=== PATIENT | male | born 2000 | race Caucasian/White ===

== ENCOUNTER 2019-04-05 23:13 | Inpatient (IN) | payer OTHER ==
[2019-04-06 01:34] VITALS: BMI 19.3
[2019-04-06] MEDS ORDERED: IBUPROFEN 400 MG TABLET (FP) PO PRN (01:42)
[2019-04-06] MEDS ORDERED: MENTHOL/PHENOL 1 EACH UD MM PRN (01:42)
[2019-04-06] MEDS ORDERED: MAGNESIUM HYDROX 2400MG/30ML ORAL SUSPENSION 30 ML CUP PO PRN (01:42)
[2019-04-06] MEDS ORDERED: NICOTINE POLACRILEX 2 MG GUM BUC PRN (01:42)
[2019-04-06] MEDS ORDERED: METHADONE HCL 10 MG TABLET (FOR DETOX USE ONLY) PO ONE (01:42)
[2019-04-06] MEDS ORDERED: DICYCLOMINE HCL 10 MG CAPSULE PO PRN (01:42)
[2019-04-06] MEDS ORDERED: ONDANSETRON *ODT* 4 MG TABLET SL PRN (01:42)
[2019-04-06] MEDS ORDERED: METHOCARBAMOL 500 MG TABLET PO PRN (01:42)
[2019-04-06] MEDS ORDERED: cloNIDine HCL 0.1 MG TABLET PO PRN (01:42)
[2019-04-06] MEDS ORDERED: MELATONIN 5 MG TABLETS PO PRN (01:42)
[2019-04-06] MEDS ORDERED: hydrOXYzine PAMOATE 25 MG CAPSULE (FP) PO PRN (01:42)
[2019-04-06] MEDS ORDERED: BISMUTH SUBSALICYLATE 524 MG/30 ML UD PO PRN (01:42)
[2019-04-06] MEDS ORDERED: NALOXONE HCL 0.4 MG/ML VIAL IM PRN (01:42)
[2019-04-06] MEDS ORDERED: MAG HYDROX/AL HYDROX/SIMETH 30 ML UNIT-DOSE CUP PO PRN (01:42)
[2019-04-06] MEDS ORDERED: MAGNESIUM CITRATE 300 ML BOTTLE PO PRN (01:42)
[2019-04-06] MEDS ORDERED: P-EPHED 60MG/TRIPROLIDI 2.5MG TABLET PO PRN (01:42)
[2019-04-06] MEDS ORDERED: ACETAMINOPHEN 325 MG TABLET (FP) PO PRN ×2 (01:42)
[2019-04-06] MEDS ORDERED: guaiFENesin 200 MG/10 ML 10 ML UNIT-DOSE CUPS PO PRN (01:42)
--- NOTE | 2019-04-06 01:42 | PN ---
BHS COWS - Scale Resting Pulse: 1= VT 81-100 Sweatin= No chills or Flushing Restless Observation: 0= Sits Still Pupil Size: 1= Pupils >than Normal Bone or Joint Aches: 4=Acute Joint/Muscle Pain Runny Nose/ Eye Tearin= Runny Nose/Eyes GI Upset > 30mins: 0= None Tremor Observation of Outstretched Hands: 0= None Yawning Observation: 1= 1-2x During Session Anxiety or Irritability: 2=Irritable/Anxious Goose Flesh Skin: 3=Piloerection COWS Score: 14 BHS Progress Note (SOAP) Subjective: HERE FOR HEROIN DETOX. REFERRED BY [facility]. REPORTS DAILY USE OF HEROIN 1 BUNDLE VIA NASAL. SINCE AGE OF 11. LAST USE EARLIER TODAY. DENIES SOB, C.P. SI/HI/AVH PMHX- DENIES PSYCH- DEPRESSION NICOTINE DEP- 10 CIG DAILY Objective: 04/06/19 01:40 Vital Signs Temperature 98.2 F 04/06/19 01:32 Pulse Rate 85 04/06/19 01:32 Respiratory Rate 18 04/06/19 01:32 Blood Pressure 124/71 04/06/19 01:32 O2 Sat by Pulse Oximetry (%) UTOX + SUZANNA, FEN, MOP, THC alejandrina 0 A/ O X3 MILD DISTRESS NCAT PERRLA, EOMI CV- RRR LUNGS CTAB ABD- SCAR, SOFT, NT INCREASE BS X4 SKIN INTACT EXTREMITIES- FROM W/O LIMITATIONS, TREMORS FELT 04/06/19 01:50 Assessment: 04/06/19 01:41 F11.23 F14.20 F12.20 Plan: ADMIT TO DETOX METHADONE TAPER
[2019-04-06] MEDS ORDERED: PRENATAL VITAMINS W/ FOLIC ACID TABLET (FP) PO SCH (10:00)
[2019-04-06] MEDS ORDERED: NICOTINE 14 MG/24 HOURS TOPICAL PATCH TD SCH (10:00)
--- NOTE | 2019-04-06 11:20 | HP ---
COWS - Scale Resting Pulse: 1= ID 81-100 Sweatin= Chills/Flushing Restless Observation: 1= Difficult to Sit Still Pupil Size: 0= Normal to Room Light Bone or Joint Aches: 4=Acute Joint/Muscle Pain Runny Nose/ Eye Tearin= None GI Upset > 30mins: 0= None Tremor Observation: 0= None Yawning Observation: 1= 1-2x During Session Anxiety or Irritability: 2=Irritable/Anxious Goose Flesh Skin: 3=Piloerection COWS Score: 13 CIWA Score - Admission Criteria OASAS Guidelines: Admission for Medically Managed Detox: Requires at least one of the followin. CIWA greater than 12 2. Seizures within the past 24 hours 3. Delirium tremens within the past 24 hours 4. Hallucinations within the past 24 hours 5. Acute intervention needed for co occurring medical disorder 6. Acute intervention needed for co occurring psychiatric disorder 7. Severe withdrawal that cannot be handled at a lower level of care (continued vomiting, continued diarrhea, abnormal vital signs) requiring intravenous medication and/or fluids 8. Admitting History and Physical - Admission Chief Complaint: "I need to Detox." History of Present Illness: Patient is a 19 YO male here to Detox from Heroin. Patient also uses Cocaine on a daily basis. This is Patient's first Detox admission at [facility]. Patient Reports that he currently Uses approx. 1 Bundle of Heroin (via Inhalation) and approx. 1 Gram of Cocaine (via Inhalation) both daily. History Source: Patient Limitations to Obtaining History: No Limitations - Past Medical History Psych: Yes: Anxiety, Depression Additional Past Medical History: DENIES. - Past Surgical History Past Surgical History: Yes: None Additional Past Surgical History: DENIES. - Smoking History Smoking history: Current every day smoker Have you smoked in the past 12 months: Yes Aproximately how many cigarettes per day: 10 - Alcohol/Substance Use Hx Alcohol Use: No History of Substance Use: reports: Cocaine, Heroin Date of Last Use: 04/05/19 - Social History Usual Living Arrangement: Yes: Other (NOTE: PATIENT DECLINED TO ANSWER QUESTIONS PERTAININ TO SOCIAL HISTORY.) ADL: Independent Admission ROS [facility] - [facility] Chief Complaint: "I need to Detox." Patient is here to Detox from Heroin. Allergies/Adverse Reactions: Allergies Allergy/AdvReac Type Severity Reaction Status Date / Time No Known Allergies Allergy Verified 03/31/19 12:46 History of Present Illness: Patient is a 19 YO male here to Detox from Heroin. Patient also uses Cocaine on a daily basis. This is Patient's first Detox admission at [facility]. Patient Reports that he currently Uses approx. 1 Bundle of Heroin (via Inhalation) and approx. 1 Gram of Cocaine (via Inhalation) both daily. Confidential Drug Utilization Report Search Terms: Tino Quintero, 2000 Search Date: 04/06/2019 11:28:07 AM The Drug Utilization Report below displays all of the controlled substance prescriptions, if any, that your patient has filled in the last twelve months. The information displayed on this report is compiled from pharmacy submissions to the Department, and accurately reflects the information as submitted by the pharmacies. This report was requested by: Jonny Banegas | Reference #: [id number] You have not added a SUBHA number. Keeping your SUBHA number(s) up to date on the My SUBHA Numbers page will enable the separation of your prescriptions from others ' in the search results. Others' Prescriptions Patient Name: Tino Quintero Date: 2000 Address: [address] [place] [address] Sex: Male Rx Written Rx Dispensed Drug Quantity Days Supply Prescriber Name 01/27/2019 01/28/2019 suboxone 4 mg-1 mg sl film 15 [address] [facility]- Patient Name: Tino Quintero Date: 2000 Address: [address] [place] [address] Sex: Male Rx Written Rx Dispensed Drug Quantity Days Supply Prescriber Name 09/29/2018 09/29/2018 buprenorphine-naloxone 4-1 mg sl film 60 30 Antwan Ruffin MD Patient Name: Tino Quintero Date: 2000 Address: [address] [address] Sex: Male Rx Written Rx Dispensed Drug Quantity Days Supply Prescriber Name 08/05/2018 08/05/2018 suboxone 4 mg-1 mg sl film 60 30 Antwan Ruffin MD 05/13/2018 05/13/2018 suboxone 4 mg-1 mg sl film 60 30 Neil Dawson MD 04/14/2018 04/14/2018 suboxone 4 mg-1 mg sl film 30 30 Fernando Greenberg * - Drugs marked with an asterisk are compound drugs. If the compound drug is made up of more than one controlled substance, then each controlled substance will be a separate row in the table. Exam Limitations: No Limitations - Ebola screening Have you traveled outside of the country in the last 21 days: No (N) Have you had contact with anyone from an Ebola affected area: No Have you been sick,other than usual withdrawal symptoms: No Do you have a fever: No - Review of Systems Constitutional: No Symptoms Reported, Chills EENT: reports: No Symptoms Reported Respiratory: reports: No Symptoms reported Cardiac: reports: No Symptoms Reported GI: reports: No Symptoms Reported : reports: No Symptoms Reported Musculoskeletal: reports: Joint Pain, Joint Stiffness, Other (Bilateral Leg Pain -Generalized Throughout Legs. Patient reprots that this symptom has occurred in the past when he has tried to Detox on his own.) Integumentary: reports: No Symptoms Reported Neuro: reports: No Symptoms reported Endocrine: reports: No Symptoms Reported Hematology: reports: No Symptoms Reported Psychiatric: reports: No Sypmtoms Reported, Judgement Intact, Mood/Affect Appropiate, Orientated x3, Anxious, Depressed Other Systems: Reviewed and Negative Patient History - Patient Medical History Hx Anemia: No Hx Asthma: No Hx Chronic Obstructive Pulmonary Disease (COPD): No Hx Cancer: No Hx Cardiac Disorders: No Hx Congestive Heart Failure: No Hx Hypertension: No Hx Hypercholesterolemia: No Hx Pacemaker: No HX Cerebrovascular Accident: No Hx Seizures: No Hx Dementia: No Hx Diabetes: No Hx Gastrointestinal Disorders: No Hx Liver Disease: No Hx Genitourinary Disorders: No Hx Sexually Transmitted Disorders: No Hx Renal Disease (ESRD): No Hx Thyroid Disease: No Hx Human Immunodeficiency Virus (HIV): No Hx Hepatitis C: No Hx Depression: Yes (Has Taken Remeron and Vistaril in past; has not taken for some time.) Hx Suicide Attempt: No Hx Bipolar Disorder: No Hx Schizophrenia: No Other Medical History: PATIENT DENIES CURRENT SI / HI. - Patient Surgical History Past Surgical History: No Other Surgical History: DENEIS. Anesthesia Reaction: No - PPD History Previous Implant?: Yes Documented Results: Negative w/o proof Implanted On Prior R Admission?: Yes Date: 04/08/19 PPD to be Administered?: Yes - Reproductive History Patient is a Female of Child Bearing Age (11 -55 yrs old): No (PATIENT IS MALE.) - Smoking Cessation Smoking history: Current every day smoker Have you smoked in the past 12 months: Yes Aproximately how many cigarettes per day: 10 Cigars Per Day: 0 Hx Chewing Tobacco Use: No Initiated information on smoking cessation: Yes 'Breaking Loose' booklet given: 04/06/19 (GIVEN ON DETOX UNIT.) - Substance & Tx. History Hx Alcohol Use: No Hx Substance Use: Yes Substance Use Type: Cocaine, Heroin Hx Substance Use Treatment: Yes - Substances abused Heroin Substance route: Inhalation Frequency: Daily Amount used: $100 Age of first use: 16 Date of last use: 03/31/19 Cocaine Substance route: Smoking Frequency: Daily Amount used: $100 Age of first use: 16 Date of last use: 03/31/19 Admission Physical Exam BHS - Vital Signs Vital Signs: Vital Signs - 24 hr 04/06/19 04/06/19 04/06/19 01:32 02:26 03:30 Temperature 98.2 F 98.0 F Pulse Rate 85 81 Respiratory 18 18 18 Rate Blood Pressure 124/71 124/83 04/06/19 04/06/19 06:13 09:28 Temperature 98.7 F 97.3 F L Pulse Rate 71 85 Respiratory 16 18 Rate Blood Pressure 107/62 127/79 - Physical General Appearance: Yes: No Apparent Distress, Nourished, Appropriately Dressed , Irritable, Anxious HEENTM: Yes: Hearing grossly Normal, Normocephalic, Normal Voice, JANEL, Pharynx Normal Respiratory: Yes: Chest Non-Tender, Lungs Clear, No Respiratory Distress, No Accessory Muscle Use Neck: Yes: No masses,lesions,Nodules, Supple, Trachea in good position Breast: Yes: Breast Exam Deferred Cardiology: Yes: Regular Rhythm, Regular Rate, S1, S2 Abdominal: Yes: Normal Bowel Sounds, Non Tender, Flat, Soft Genitourinary: Yes: Within Normal Limits Back: Yes: Normal Inspection Musculoskeletal: Yes: full range of Motion, Gait Steady, Joint Stiffness, Muscle Pain (Bilateral Leg Pain - Generalized Throughout Legs.) Extremities: Yes: Normal Capillary Refill, Normal Range of Motion, Other ( Bilateral Leg Pain - Generalized Throughout Legs.) Neurological: Yes: Fully Oriented, Alert, Normal Mood/Affect, Normal Response Integumentary: Yes: Normal Color, Dry, Warm Lymphatic: Yes: Within Normal Limits - Diagnostic (1) Opioid dependence with withdrawal Current Visit: Yes Status: Acute (2) Cocaine dependence, uncomplicated Current Visit: Yes Status: Chronic (3) Nicotine dependence Current Visit: Yes Status: Acute Qualifiers: Nicotine product type: cigarettes Substance use status: uncomplicated Qualified Code(s): F17.210 - Nicotine dependence, cigarettes, uncomplicated (4) History of depression Current Visit: Yes Status: Chronic (5) Anxiety Current Visit: Yes Status: Chronic Cleared for Admission [facility] - Detox or Rehab [facility] Level of Care: Medically Managed Detox Regimen/Protocol: Methadone Claeared for Rehab Admission: No Breathalyzer - Breathalyzer Breathalyzer: 0 Urine Drug Screen - Test Device Lot number: [id number] Expiration date: 12/03/20 - Control Is test valid?: Yes - Results Drug screen NEGATIVE: No Urine drug screen results: THC-Marijuana, SUZANNA-Cocaine, FEN-Fentanyl, MOP-Opiates Inpatient Rehab Admission - Rehab Decision to Admit Inpatient rehab admission?: No
[2019-04-06 11:58] LABS: HEMATOCRIT 34.7 % (35.4-49); HEMOGLOBIN 11.4 GM/dL (11.7-16.9); MCH 29.2 pg (25.7-33.7); MCHC 32.7 g/dl (32.0-35.9); MEAN CELL VOLUME 89.2 fl (80-96); MEAN PLT VOLUME 8.5 fl (7.5-11.1); PLATELET COUNT 255 K/MM3 (134-434); RBC 3.89 M/mm3 (4.00-5.60); RDW 13.6 % (11.9-15.9); WHITE BLOOD COUNT 13.1 K/mm3 (4.0-10.0)
--- NOTE | 2019-04-06 12:15 | CONSULT ---
[facility] Psychiatric Consult - Data Date of interview: 04/06/19 Admission source: [facility] Identifying data: Machined [employer] Quality Inspector approached patient for psychiatric consultation. Patient refused to speak to marketing writer. HECTOR Laurent present. HECTOR Laurent also attempted to speak to marketing writer in hopes of having him complete his psychiatric consultation but attempt was unsuccessful. Psychiatric consultation refused.
--- NOTE | 2019-04-06 12:45 | EKG ---
Test Reason : Blood Pressure : / mmHG Vent. Rate : 071 BPM Atrial Rate : 071 BPM P-R Int : 140 ms QRS Dur : 082 ms QT Int : 406 ms P-R-T Axes : 075 082 063 degrees QTc Int : 441 ms NORMAL SINUS RHYTHM WITH SINUS ARRHYTHMIA NORMAL ECG NO PREVIOUS ECGS AVAILABLE Confirmed by MD BARBI, ARIAS ([id number]) on 04/06/2019 12:45:46 PM Referred By: Christi Feliz Confirmed By:ARIAS LANDON MD
[2019-04-06 12:51] LABS: ALBUMIN 3.5 g/dl (3.4-5.0); BILIRUBIN,TOTAL 0.6 mg/dL (0.2-1); BLOOD UREA NITROGEN 20.3 mg/dL (7-18); CALCIUM 8.1 mg/dL (8.5-10.1); CREATININE 0.7 mg/dL (0.55-1.3); POTASSIUM 3.6 mmol/L (3.5-5.1); TOT PROT 6.3 g/dl (6.4-8.2)
[2019-04-06 13:19] VITALS: BP 110/60; PULSE 71; TEMP 97.8
--- NOTE | 2019-04-06 15:31 | DS ---
[facility] Detox Discharge Summary Admission Date: 04/06/19 Discharge Date: 04/06/19 - History Present History: Cocaine Dependence, Opioid Dependence Additional Comments: DESPITE NUMEROUS EFFORTS BY GRAPHICS SPECIALIST AND BY NURSING STAFF TO ADDRESS PATIENT'S MEDICAL NEEDS / CONCERNS, PATIENT REPORTS THAT HE DOES NOT FEEL THAT HIS NEEDS ARE BEING MET OR THAT HE IS RECEIVING A SUFFICIENT DOSE OF DETOX MEDICATION HERE ON DETOX UNIT. SUCH, PATIENT NO LONGER WISHES TO REMAIN TO COMPLETE DETOX REGIMEN. RISKS OF LEAVING DETOX UNIT AGAINST MEDICAL ADVICE AND PRIOR TO COMPLETION OF DETOX REGIMEN EXPLAINED TO PATIENT. PATIENT ADVISED TO GO IMMEDIATELY TO NEAREST ER SHOULD ANY INTOLERABLE WITHDRAWAL / DETOX SYMPTOMS DEVELOP AT ANY TIME. ELEVATED WBC LEVEL (13.1) NOTED ON DETOX ADMISSION LABORATORY ASSESSMENT JUST PRIOR TO TIME IN WHICH PATIENT ELECTS TO LEAVE DETOX UNIT AGAINST MEDICAL ADVICE. PATIENT ADVISED TO FOLLOW-UP WITH AUTOMATIC LINE SET UP MECHANIC SOON POSSIBLE FOR FURTHER MEDICAL EVALUATION OF ELEVATED WBC LEVEL NOTED ON DETOX ADMISSION LABORATORY ASSESSMENT. PATIENT VERBALIZED UNDERSTANDING OF ALL INFORMATION / RECOMMENDATIONS PRESENTED TO HIM PRIOR TO DEPARTURE FROM DETOX UNIT. COPIES OF RESULTS OF ALL LABS DRAWN WHILE ADMITTED FOR DETOX GIVEN TO PATIENT AT TIME OF DISCHARGE FROM DETOX UNIT. Pertinent Past History: History Of Depression, Anxiety, Nicotine Dependence, Leukocytosis, Anemia. - Physical Exam Results Vital Signs: Vital Signs Temperature 97.8 F 04/06/19 13:17 Pulse Rate 71 04/06/19 13:17 Respiratory Rate 16 04/06/19 13:17 Blood Pressure 110/60 04/06/19 13:17 O2 Sat by Pulse Oximetry (%) Pertinent Admission Physical Exam Findings: WITHDRAWAL SYMPTOMS. Laboratory Tests 04/06/19 04/06/19 04/06/19 08:45 08:45 08:45 WBC 13.1 H RBC 3.89 L Hgb 11.4 L Hct 34.7 L MCV 89.2 MCH 29.2 MCHC 32.7 RDW 13.6 Plt Count 255 MPV 8.5 Sodium 138 Potassium 3.6 Chloride 105 Carbon Dioxide 25 Anion Gap 9 BUN 20.3 H Creatinine 0.7 Est GFR (CKD-EPI)AfAm 157.45 Est GFR (CKD-EPI)NonAf 135.85 Random Glucose 89 Calcium 8.1 L Total Bilirubin 0.6 AST 39 H ALT 30 Alkaline Phosphatase 113 Total Protein 6.3 L Albumin 3.5 RPR Titer Nonreactive LABS NOTED. - Medication Discharge Medications: Ambulatory Orders Hydroxyzine HCl 50 mg PO TID 03/31/19 Mirtazapine 30 mg PO HS 04/06/19 - Diagnosis (1) Opioid dependence with withdrawal Current Visit: Yes Status: Acute (2) Cocaine dependence, uncomplicated Current Visit: Yes Status: Chronic (3) Nicotine dependence Current Visit: Yes Status: Acute Qualifiers: Nicotine product type: cigarettes Substance use status: uncomplicated Qualified Code(s): F17.210 - Nicotine dependence, cigarettes, uncomplicated (4) History of depression Current Visit: Yes Status: Chronic (5) Anxiety Current Visit: Yes Status: Chronic (6) Leukocytosis Current Visit: Yes Status: Acute Qualifiers: Leukocytosis type: unspecified Qualified Code(s): D72.829 - Elevated white blood cell count, unspecified (7) Anemia Current Visit: Yes Status: Acute Qualifiers: Anemia type: unspecified type Qualified Code(s): D64.9 - Anemia, unspecified - AMA Did Patient Leave Against Medical Advice: Yes (PATIENT DID NOT WISH TO REMAIN TO COMPLETE DETOX REGIMEN.) BHS COWS - Scale Resting Pulse: 0= PA 80 or Below Sweatin= No chills or Flushing Restless Observation: 1= Difficult to Sit Still Pupil Size: 0= Normal to Room Light Bone or Joint Aches: 4=Acute Joint/Muscle Pain Runny Nose/ Eye Tearin= None GI Upset > 30mins: 0= None Tremor Observation of Outstretched Hands: 0= None Yawning Observation: 0= None Anxiety or Irritability: 4=Extreme Anxiety Goose Flesh Skin: 3=Piloerection COWS Score: 12
[2019-04-06] MEDS ORDERED: THIAMINE HCL 100 MG TABLET (FP) PO SCH (22:00)
[2019-04-07] MEDS ORDERED: METHADONE (DETOX) 20 MG, METHADONE (DETOX) 5 MG PO ONE (10:00)
[2019-04-08] MEDS ORDERED: METHADONE HCL 10 MG TABLET (FOR DETOX USE ONLY) PO ONE (10:00)
[2019-04-09] MEDS ORDERED: METHADONE (DETOX) 10 MG, METHADONE (DETOX) 5 MG PO ONE (10:00)
[2019-04-10] MEDS ORDERED: METHADONE HCL 10 MG TABLET (FOR DETOX USE ONLY) PO ONE (10:00)
[2019-04-11] MEDS ORDERED: METHADONE HCL 5 MG TABLET (FOR DETOX USE ONLY) PO ONE (06:00)
== END 2019-04-06 15:49 | disposition left against medical advice (07) | DRG 770 ==
LOC: YASAS 23:13 → Y3N 04-06 01:50
PROVIDERS: ADMIT Surgery; ATTEND Surgery
PROC: HZ2ZZZZ Detoxification Services for Substance Abuse Treatment (ICD-10-PCS; principal; 2019-04-06)
DX: F11.23 Opioid dependence with withdrawal (principal); F14.20 Cocaine dependence, uncomplicated; F17.210 Nicotine dependence, cigarettes, uncomplicated; F41.9 Anxiety disorder, unspecified; D72.829 Elevated white blood cell count, unspecified; D64.9 Anemia, unspecified
CPT/HCPCS: 36415; 80053; 85027; 86593; 93005; 93010